=== PATIENT | male | born 1960 | race Caucasian/White ===

== ENCOUNTER 2018-03-07 17:15 | Emergency (ER) | payer OTHER ==
[~2018-03-07] VITALS: Ht 177.8 cm; Wt 86.2 kg
[2018-03-07] MEDS ORDERED: LANTUS SOL100 UNIT/1 (17:45)
[2018-03-07] MEDS ORDERED: JANUVIA100 MG (17:46)
[2018-03-07] MEDS ORDERED: GLIMEPIRIDE4 MG (17:46)
[2018-03-07] MEDS ORDERED: ACTOS15 MG (17:46)
[2018-03-07] MEDS ORDERED: CRESTOR40 MG (17:50)
== END 2018-03-07 19:42 | disposition home or self-care (01) ==
LOC: ER 17:15
DX: S90.112A Contusion of left great toe without damage to nail, initial encounter (principal); W22.8XXA Striking against or struck by other objects, initial encounter; Y93.89 Activity, other specified; Y92.89 Other specified places as the place of occurrence of the external cause; Y99.8 Other external cause status